=== PATIENT | female | born 1945 | race Caucasian/White ===

== ENCOUNTER 2021-05-01 15:28 | Emergency (ER) | payer MEDICARE ==
[~2021-05-01] VITALS: Ht 157.5 cm; Wt 85.0 kg
[~2021-05-01 15:28] MED LIST: ALEN70TA71 PO; BACL10TA PO; CALC-170 PO; IBUP200C PO; LISI1TAB35 PO; METR1KIT TP; OMEG500C PO; PENT400T7 PO; SIMV20TA18 PO; VENL75TA2 PO; [UNRECOGNIZED DRUG - CODE] PO
--- NOTE | 2021-05-01 16:41 | PHYS DOC ---
Past Medical History Past Medical History: Depression, High Cholesterol, Hypertension Past Surgical History: No Surgical History Smoking Status: Former Smoker Alcohol Use: Occasionally Drug Use: None General Adult EDM: Chief Complaint: MECHANICAL FALL HPI: HPI: Patient is a 76 year old female who presented to the ER for evaluation of left shoulder injury. Patient says she tripped and fell down on her left shoulder 2 days ago. Patient denies any head or neck injury, denies take any blood thinner. Patient denies any back pain, no neck pain, no numbness or weakness in her left upper extremity. Patient denies any chest pain. Her son noticed the bruise on her shoulder today so he asked her to come here for evaluation. Patient did not want to take any pain medication. Patient denies any pain in her pelvic or hip area, she has been ambulate without any problem. Review of Systems: Review of Systems: Constitutional: Denies fever or chills. [] Eyes: Denies change in visual acuity. [] HENT: Denies nasal congestion or sore throat. [] Respiratory: Denies cough or shortness of breath. [] Cardiovascular: Denies chest pain or edema. [] GI: Denies abdominal pain, nausea, vomiting, bloody stools or diarrhea. [] : Denies dysuria. [] Musculoskeletal: Positive for left shoulder pain Integument: Denies rash. [] Neurologic: Denies headache, focal weakness or sensory changes. [] Endocrine: Denies polyuria or polydipsia. [] Lymphatic: Denies swollen glands. [] Psychiatric: Denies depression or anxiety. [] Heart Score: C/O Chest Pain: N/A Risk Factors: Risk Factors: DM, Current or recent (<one month) smoker, HTN, HLP, family history of CAD, obesity. Risk Scores: Score 0 - 3: 2.5% MACE over next 6 weeks - Discharge Home Score 4 - 6: 20.3% MACE over next 6 weeks - Admit for Clinical Observation Score 7 - 10: 72.7% MACE over next 6 weeks - Early Invasive Strategies Allergies: Allergies: Allergies Coded Allergies Type Severity Reaction Last Updated Verified smallpox vaccine,chick-embryo,live Allergy Intermediate 10/13/14 No Physical Exam: PE: Constitutional: Well developed, well nourished, no acute distress, non-toxic appearance. [] HENT: Normocephalic, atraumatic, bilateral external ears normal, oropharynx moist, no oral exudates, nose normal. [] Eyes: PERRLA, EOMI, conjunctiva normal, no discharge. [] Neck: Normal range of motion, no tenderness, supple, no stridor. [] Cardiovascular:Heart rate regular rhythm, no murmur [] Lungs & Thorax: Bilateral breath sounds clear to auscultation [] Abdomen: Bowel sounds normal, soft, no tenderness, no masses, no pulsatile masses. [] Skin: Warm, dry, no erythema, no rash. [] Back: No tenderness, no CVA tenderness. [] Extremities: Left shoulder with skin contusion, no open wound, no deformity noted. There is full range of motion of the left shoulder. Neurologic: Alert and oriented X 3, normal motor function, normal sensory function, no focal deficits noted. [] Psychologic: Affect normal, judgement normal, mood normal. [] EKG: EKG: [] Radiology/Procedures: Radiology/Procedures: [][facility] [address] [place] [address] IMAGING REPORT Signed PATIENT: MARGA ROSAOUNT: [id number] : 1945 LOCATION: ER AGE: 76 SEX: F EXAM STATUS: REG ER ORD. PHYSICIAN: JULIO MASON DO REASON: LEFT SHOULDER INJURED, FELL TWO DAYS AGO PROCEDURE: SHOULDER 2+V LEFT EXAM: Left shoulder, 2 views. HISTORY: Fall. COMPARISON: None. FINDINGS: 2 views of the left shoulder obtained. There is a mildly displaced humeral head and neck fracture with involvement of the greater tuberosity. There is degenerative change involving the visualized cervical spine. IMPRESSION: Mildly displaced humeral head and neck fracture. Electronically signed by: Nilda Dias MD (05/01/2021 4:44 PM) [id number] DICTATED and SIGNED BY: NILDA DIAS MD DATE: 05/01/21 [id number] 0 Course & Med Decision Making: Course & Med Decision Making Pertinent Labs and Imaging studies reviewed. (See chart for details) Patient is a 76-year-old female who present to ER due to left shoulder injury, x-ray did not show fracture of the humeral head and neck, no dislocation noted, patient did not want any pain medication. Patient was given a sling to wear, she will need to follow with orthopedic for outpatient evaluation and treatment. Debbie Disclaimer: Debbie Disclaimer: This electronic medical record was generated, in whole or in part, using a voice recognition dictation system. Departure Departure Impression: Primary Impression: Fracture of humeral head, left, closed Disposition: 01 HOME / SELF CARE / HOMELESS Condition: STABLE Referrals: DEWEY ROSA MD (PCP) SHE SHEN Jr. DO Please call this orthopedic surgeon for follow up this week. Patient Instructions: Shoulder Fracture (Proximal Humerus or Glenoid)-[facility] Additional Instructions: Thank you for visiting our Emergency Department. We appreciate you trusting us with your care. If any additional problems come up don't hesitate to return to visit us. Please follow up with your primary care provider so they can plan bonnie tional care if needed and know about the problem that you had. If symptoms worsen come back to the Emergency Department. Any concerning symptoms that start such as chest pain, shortness of air, weakness or numbness on one side of the body, running high fevers or any other concerning symptoms return to the ER. JULIO MASON DO May 01, 2021 16:41
--- NOTE | 2021-05-01 16:47 | RAD ---
EXAM: Left shoulder, 2 views. HISTORY: Fall. COMPARISON: None. FINDINGS: 2 views of the left shoulder obtained. There is a mildly displaced humeral head and neck fr acture with involvement of the greater tuberosity. There is degenerative change involving the visuali zed cervical spine. IMPRESSION: Mildly displaced humeral head and neck fracture. Electronically signed by: Nilda Ray MD (05/01/2021 4:44 PM) [id number]
[2021-05-01] MEDS ORDERED: HYDROcodone/APAP 5/325MG 1 TAB TABLET PO ONE (17:00)
[2021-05-01 17:20] VITALS: BP 159/72
== END 2021-05-01 17:26 | disposition home or self-care (01) ==
LOC: ER 15:28
DX: S42.292A Other displaced fracture of upper end of left humerus, initial encounter for closed fracture (principal); E78.00 Pure hypercholesterolemia, unspecified; I10 Essential (primary) hypertension; Z87.891 Personal history of nicotine dependence; Z88.7 Allergy status to serum and vaccine; W01.0XXA Fall on same level from slipping, tripping and stumbling without subsequent striking against object, initial encounter; Y93.89 Activity, other specified; Y92.89 Other specified places as the place of occurrence of the external cause; Y99.8 Other external cause status
CPT/HCPCS: 73030; 99283; A4565